=== PATIENT | female | born 1965 | race African-American/Black ===

== ENCOUNTER 2016-12-12 14:40 | Inpatient (IN) ==
--- NOTE | 2016-12-12 15:00 | EKG Report ---
Test Performed on : 12/12/2016 2:56:02 PM Test Reason : cp/abd pain Blood Pressure : / mmHG Vent. Rate : 089 BPM Atrial Rate : 089 BPM P-R Int : 178 ms QRS Dur : 092 ms QT Int : 364 ms P-R-T Axes : 057 019 036 degrees QTc Int : 442 ms Normal sinus rhythm. Normal ECG When compared with ECG of 23-OCT-2016 14:53, Nonspecific T wave abnormality no longer evident in Lateral leads Unconfirmed Result
[2016-12-12 15:26] LABS: BASO% 0.2 % (0.0-0.8); EOS# 0.02 X1000 (0.0-0.7); EOS% 0.2 % (0.0-10.0); HEMOGLOBIN 12.8 g/dL (12.0-16.0); IMM GRAN# 0.03 X1000 (0.0-0.04); IMM GRAN% 0.3 % (0.0-0.5); LYMPH# 2.16 X1000 (1.2-3.4); LYMPH% 18.8 % (20.5-51.1); MANUAL DIFF NEEDED? NO; MCH 31.1 PG (27-31); MCHC 32.8 g/dL (33-37); MCV 94.9 FL (81-99); MONO# 0.35 X1000 (0.11-0.59); MONO% 3.1 % (1.7-9.3); NEUT% 77.4 % (42.2-75.2); PLT 148 X1000 (130-400); RBC 4.11 XMIL (4.2-5.4)
--- NOTE | 2016-12-12 15:34 | Diag Imaging Result Doc PS360 ---
EXAM: FLAT/UPRIGHT ABD/1 VIEW CHEST HISTORY: abd pain TECHNIQUE: Two view abdomen. Single view chest. COMPARISON: 10/23/2016 FINDINGS: Supine and erect views of the abdomen reveal postsurgical changes upper abdomen and lumbar spine. There is a paucity of bowel gas which somewhat limits evaluation of possible obstruction.. There is no organomegaly or mass effect. Single view of the chest reveals no infiltrate, effusion, or pneumothorax. There is no free air beneath the hemidiaphragm. There is borderline cardiomegaly. IMPRESSION: No acute abnormalities are appreciated. Paucity of bowel gas which somewhat limits evaluation of obstruction. Borderline cardiomegaly. Electronically signed by Alexandra Currie 12/12/2016 3:32 PM
[2016-12-12 16:03] LABS: AGAP 18; ALBUMIN 4.3 g/dL (3.5-5.0); ALKALINE PHOSPHATASE 144 U/L (32-104); AMYLASE 110 U/L (20-200); BUN 9 mg/dL (8-22); CALCIUM 10.1 mg/dL (8.8-10.2); CHLORIDE 97 mmol/L (98-107); COSMO 277; GOT 20 U/L (10-30); GPT 17 U/L (10-36); LIPASE 26 U/L (13-60); POTASSIUM 4.1 mmol/L (3.5-5.1); SODIUM 137 mmol/L (136-145); TCO2 22 mmol/L (25-35); TOTAL PROTEIN 8.1 g/dL (6.3-8.3)
[2016-12-12 16:08] LABS: URINE CULTURE PL NEEDED? NO
[2016-12-12] MEDS ORDERED: SODIUM CHLORIDE 0.9% INJ ONE (16:10)
[2016-12-12] MEDS ORDERED: PHENERGAN IV ONE (16:10)
[2016-12-12] MEDS ORDERED: PHENERGAN ONE (16:11)
[2016-12-12 16:22] LABS: BILIRUBIN URINE NEGATIVE (NEGATIVE); BLOOD URINE NEGATIVE (NEGATIVE); CLARITY CLEAR (CLEAR); COLOR YELLOW; GLUCOSE URINE NEGATIVE (NEGATIVE); LEUKOCYTES URINE NEGATIVE (NEGATIVE); NITRITE URINE NEGATIVE (NEGATIVE); PROTEIN URINE NEGATIVE (NEGATIVE); UROBILINOGEN URINE NORMAL
[2016-12-12 16:23] LABS: URINE CAST NONE SEEN /LPF; URINE CRYSTAL NONE SEEN /HPF; URINE EPITHELIAL CELLS <10 /HPF (<10); URINE RBC <10 /HPF (<10); URINE SOURCE CLEAN CATCH; URINE WBC <10 /HPF (<10)
[2016-12-12] MEDS ORDERED: NS 1,000 ML IV ONE (16:26)
[2016-12-12] MEDS ORDERED: COMPAZINE IV ONE (16:27)
[2016-12-12] MEDS ORDERED: DEMEROL IV ONE (16:27)
[2016-12-12] MEDS ORDERED: NS 1,000 ML ONE (16:32)
[2016-12-12] MEDS ORDERED: CARDIZEM IV ONE (18:44)
--- NOTE | 2016-12-12 21:01 | Diag Imaging Result Doc PS360 ---
EXAM: CT ABD/PELVIS W/ IV CONT ONLY INDICATION: vomiting/ hx pancreatitis/ cholecystectomy/ hyster COMPARISON: CT bony pelvis dated 11/18/[address] abdomen and pelvis dated 10/18/2012 FINDINGS: There are calcified granulomata in the right lung perihilar region. There has been a previous cholecystectomy. There is no evidence of acute pancreatitis. There is evidence of prior gastric surgery. There is a tiny cyst at the anterior aspect of the left kidney. There has been a previous hysterectomy. The appendix is normal. No focal inflammatory changes, free abdominal gas, or free fluid is appreciated. There is no bowel obstruction. The remainder of the solid viscera of the abdomen and pelvis and the remainder of the GI tract are essentially unremarkable. There is patchy aortoiliac atherosclerotic calcification. There is no evidence of aneurysm. IMPRESSION: Essentially stable chronic changes as described above. No evidence of acute pathology. Electronically signed by Shahbaz Rivers 12/12/2016 8:59 PM
[2016-12-12] MEDS: ZOFRAN IV PRN (23:41)
[2016-12-13] MEDS: ZOFRAN IV PRN ×2 (09:57→17:01)
[2016-12-13 11:55] LABS: HEMATOCRIT 38.4 % (37.0-47.0); HEMOGLOBIN 12.7 g/dL (12.0-16.0); MCH 30.7 PG (27-31); MCHC 33.1 g/dL (33-37); MCV 92.8 FL (81-99); PLT 146 X1000 (130-400); RBC 4.14 XMIL (4.2-5.4)
[2016-12-13 12:10] LABS: AGAP 15; ALBUMIN 4.1 g/dL (3.5-5.0); ALKALINE PHOSPHATASE 135 U/L (32-104); BUN 9 mg/dL (8-22); CALCIUM 9.7 mg/dL (8.8-10.2); CHLORIDE 95 mmol/L (98-107); COSMO 268; GOT 17 U/L (10-30); GPT 17 U/L (10-36); MAGNESIUM 1.3 mg/dL (1.5-2.7); POTASSIUM 3.4 mmol/L (3.5-5.1); SODIUM 133 mmol/L (136-145); TCO2 23 mmol/L (25-35); TOTAL PROTEIN 7.8 g/dL (6.3-8.3)
[2016-12-13] MEDS: HUMALOG DOSE (PARKWAY) SUBQ SCH ×3 (14:19→20:08)
--- NOTE | 2016-12-13 16:51 | HISTORY AND PHYSICAL ---
CHIEF COMPLAINT: Abdominal pain. HISTORY OF PRESENT ILLNESS: This is a 50-year-old female who presented to the emergency room complaining of abdominal pain that began about 6 hours prior to presentation to the emergency room. She described it as a crampy-type pain. It was generalized, with no specific exacerbation or alleviating factors. She does complain of nausea. She did receive Zofran ODT en route to the emergency room with no relief of nausea. She does have a prior history of Billroth I, hypertension, recurrent pancreatitis status post Whipple, prior chronic alcoholism. She comes in complaining of generalized abdominal pain for about 6 hours prior to admission, chronic pancreatitis being status post Whipple, as well as chronic alcohol abuse. She denied any black or bloody vomitus, black or bloody stools, any vomiting or chest pain. CT of the abdomen revealed no acute pathology with abdominal x-ray revealing no acute abnormalities. She was given Phenergan, Compazine, and Demerol as well as IV hydration in the emergency room, and admitted for further evaluation and treatment. PAST MEDICAL HISTORY: Hypertension, recurrent pancreatitis status post Whipple, alcohol abuse, COPD, chronic back pain. PAST SURGICAL HISTORY: Whipple procedure, lumbar laminectomy of 3, 4, and 5, cholecystectomy, hysterectomy, and tonsillectomy. SOCIAL HISTORY: She smokes about a pack a day. Denies any illicit drug use. She does have a history of alcoholism, although she quit greater than 5 years ago. ALLERGIES: No known drug allergies. HOME MEDICATIONS: Compazine, metformin, Lyrica, Protonix, methocarbamol, Norvasc, Xanax, and ProAir. REVIEW OF SYSTEMS: A 14-point review of systems was discussed with patient, with pertinent positives stated in the HPI. She denied any chest pain, palpitations, dizziness, syncope, vomiting, black or bloody vomitus, diarrhea, constipation, black or bloody stools, hematuria, dysuria, frequency, or urgency. PHYSICAL EXAMINATION: GENERAL: This is a 50-year-old female who is lying in the bed in no distress. VITAL SIGNS: Blood pressure is 160/76 with a heart rate of 89, respirations are 18, temperature is 98.2 degrees oral, with room air saturations of 96% to 100%. HEENT: Head is normocephalic, atraumatic. Pupils equal, round, react to light. EOMs are intact. Sclerae anicteric. Mucous membranes are moist. NECK: Supple, with trachea midline. CARDIOVASCULAR: Regular rate and rhythm. S1 and S2 appreciated. PULMONARY: Breath sounds are clear, with no increased work of breathing noted. GASTROINTESTINAL: Abdomen is soft, round, nontender, and nondistended, with bowel sounds in all 4 quadrants. EXTREMITIES: No clubbing, cyanosis, or edema. Calves are nontender. Pulses are palpable x4. NEUROLOGIC: She is sleepy, although she does wake to verbal stimuli. LABORATORY: WBC is 11.4 with hemoglobin of 12.8, hematocrit 39, and platelets of 148,000. Sodium 137, potassium 4.1, BUN 9 with a creatinine of 0.8, and glucose of 171. Urinalysis is essentially negative. Amylase is 110 and lipase 26. ASSESSMENT AND PLAN: 1. Abdominal pain. 2. Nausea. 3. Hypertension. 4. Chronic obstructive pulmonary disease. 5. Gastroesophageal reflux disease. 6. Tobacco abuse. PLAN: The patient has been admitted to the med/surg floor. She is receiving IV hydration, which we will continue. We will continue telemetry. We will give a clear liquid diet and advance as tolerated. We will identify her home medications and continue as appropriate. We will trend labs in the morning. In reviewing the patient's past records, she was admitted back in 2012 with the same symptoms, underwent an EGD, and was given Carafate. She does state that that did help her in the past. We will start Carafate suspension every 6 hours and we will monitor. DISPOSITION: Hopefully, the patient will be able to be discharged in 1-2 days and follow up with Dr. Fang in Gastroenterology on an outpatient basis. Dictated by ERNA Peterson for Steve Hopkins MD cc: ERNA Peterson MD
[2016-12-13] MEDS: CARAFATE LIQUID PO SCH (20:23)
[2016-12-13] MEDS: ROBAXIN PO PRN (20:23)
[2016-12-13] MEDS: LYRICA PO SCH (20:23)
[2016-12-13] MEDS: XANAX PO SCH (20:23)
[2016-12-13] MEDS: G.I. COCKTAIL PO PRN (21:30)
[2016-12-14] MEDS: VENTOLIN HFA INH SCH ×5 (03:04→22:24)
[2016-12-14] MEDS: CARAFATE LIQUID PO SCH ×4 (03:23→20:17)
[2016-12-14 05:59] LABS: HEMATOCRIT 38.4 % (37.0-47.0); HEMOGLOBIN 12.7 g/dL (12.0-16.0); MCHC 33.1 g/dL (33-37); MCV 93.7 FL (81-99); MPV 14.2 FL (7.4-10.4); RBC 4.1 XMIL (4.2-5.4)
[2016-12-14] MEDS: HUMALOG DOSE (PARKWAY) SUBQ SCH ×4 (06:01→20:11)
[2016-12-14] MEDS: PROTONIX PO SCH (06:04)
[2016-12-14 06:19] LABS: ALBUMIN 3.8 g/dL (3.5-5.0); CALCIUM 9.6 mg/dL (8.8-10.2); POTASSIUM 3.3 mmol/L (3.5-5.1); TOTAL BILIRUBIN 0.5 mg/dL (0.20-1.00); TOTAL PROTEIN 7.3 g/dL (6.3-8.3)
[2016-12-14] MEDS: G.I. COCKTAIL PO PRN (08:13)
[2016-12-14] MEDS ORDERED: ZOFRAN IV PRN (10:11)
--- NOTE | 2016-12-14 11:36 | PROGRESS NOTE ---
DATE: 12/14/2016 SUBJECTIVE: The patient still complains of epigastric abdominal pain. Denies any current chest pain or palpitations. Denies any diarrhea or constipation. PHYSICAL EXAMINATION: Vital Signs: Temperature 98, pulse 86, respiratory rate 16, BP 115/62, saturation 93% on room air. General: Patient is awake, alert. She is currently in no respiratory distress. HEENT: Normocephalic and atraumatic. [place]. Neck: Supple. CV: Regular rate. Chest: Clear. Abdomen: Soft. Tender before palpation diffusely. No guarding. No rebound. Extremities: Moves all extremities. Neurologic: No focal changes. DIAGNOSTIC DATA: CBC and CMP essentially normal. Potassium 3.3, creatinine 1.1. AST and ALT both have elevated overnight to 15 and 46 respectively. PLAN: We will advance diet. We will recheck her labs in the a.m. If her LFTs are improving, we will discharge home. If not, we will begin workup. Certainly expect that she is going to be gastritis. According to the family, it may be alcoholic gastritis. cc: Steve Hopkins MD
[2016-12-14] MEDS: ROBAXIN PO PRN ×2 (12:00→21:30)
[2016-12-14] MEDS: NORVASC PO SCH (12:01)
[2016-12-14] MEDS: NORCO-5 PO PRN ×2 (17:37→21:30)
[2016-12-14] MEDS: LYRICA PO SCH (20:17)
[2016-12-14] MEDS: XANAX PO SCH (20:17)
[2016-12-15] MEDS: CARAFATE LIQUID PO SCH ×2 (01:30→09:14)
[2016-12-15] MEDS: NORCO-5 PO PRN ×2 (01:30→06:12)
[2016-12-15] MEDS: VENTOLIN HFA INH SCH ×2 (03:37→09:02)
[2016-12-15] MEDS: HUMALOG DOSE (PARKWAY) SUBQ SCH (06:11)
[2016-12-15] MEDS: PROTONIX PO SCH (06:12)
[2016-12-15 06:17] VITALS: BP 134/77
[2016-12-15 06:38] LABS: HEMATOCRIT 37.3 % (37.0-47.0); HEMOGLOBIN 12.1 g/dL (12.0-16.0); MCH 30.7 PG (27-31); MCHC 32.4 g/dL (33-37); MCV 94.7 FL (81-99); PLT 136 X1000 (130-400); RBC 3.94 XMIL (4.2-5.4)
[2016-12-15 08:04] LABS: ALBUMIN 3.7 g/dL (3.5-5.0); CALCIUM 9.5 mg/dL (8.8-10.2); MAGNESIUM 1.8 mg/dL (1.5-2.7); POTASSIUM 3.4 mmol/L (3.5-5.1); TOTAL BILIRUBIN 0.3 mg/dL (0.20-1.00)
[2016-12-15] MEDS: NORVASC PO SCH (09:14)
--- NOTE | 2016-12-16 08:21 | DISCHARGE SUMMARY ---
ADMISSION DATE: 12/12/2016 DISCHARGE DATE: 12/15/2016 PRIMARY CARE PHYSICIAN: None. ADMISSION DIAGNOSES: 1. Abdominal pain. 2. Nausea. 3. Hypertension. 4. Chronic obstructive pulmonary disease. 5. Gastroesophageal reflux disease. 6. Tobacco abuse. DISCHARGE DIAGNOSES: 1. Epigastric abdominal pain. 2. Elevated liver function tests, improved. 3. Nausea, resolved. 4. Hypertension. 5. Chronic obstructive pulmonary disease. 6. Gastroesophageal reflux disease. 7. Tobacco abuse summary. SUMMARY OF FINDINGS: This is a 50-year-old female who presented with abdominal pain that began approximately 6 hours prior to presenting to the emergency room that she described as a crampy- type pain generalized with no specific exacerbation or alleviating factors. She also complained of nausea. She has had a history of recurrent pancreatitis status post a Whipple and prior chronic alcoholism. She denied any black or bloody vomitus, black or bloody stool or any vomiting or chest pain. Her CT of the abdomen revealed no acute pathology with an abdominal x-ray revealing no acute abnormality. She was admitted and given IV hydration, placed on a clear liquid diet, and advanced as tolerated. Trend her labs. Her nausea is improved. It is noted per the family that this may be an alcoholic gastritis as they feel she has been drinking more lately, but she is improved. So, it is felt that she can safely be discharged home today and follow up with her GI doctor, who is Dr. Fang, for outpatient GI workup in the next 1-2 weeks. DISCHARGE MEDICATIONS: 1. She will be given a prescription for [place] 5 one p.o. q.4 hours p.r.n. #15 with no refills. 2. She will resume her ProAir inhaler q.6 hours. 3. Xanax 2 mg p.o. at bedtime. 4. Amlodipine 5 mg p.o. daily. 5. Methocarbamol 750 mg p.o. t.i.d. 6. Protonix 40 mg p.o. daily. 7. Lyrica 300 mg p.o. at bedtime. 8. Metformin 500 mg p.o. b.i.d. 9. Compazine 5 mg p.o. q. 8 hours p.r.n. FOLLOWUP: She will need to follow up with GI for outpatient workup. Time spent on discharge: 35 minutes. Dictated by ERNA Degroot for Steve Hopkins MD cc: ERNA Degroot MD Babu Kantamneni, MD
--- NOTE | 2016-12-18 02:59 | ED EKG INTERP ---
This chart was entered by Zakiya Flowers Scribe, acting as scribe for Pelon Anderson MD. EKG Interpretation - EKG Time of EKG reading by physician:: 14:56 EKG Read and Signed by:: Pelon Anderson EKG Interpretation (*Must complete 3 of following elements*): Normal Rate: 89 Rhythm: normal sinus rhythm Comments: normal ECG This chart was documented by the indicated scribe, (Zakiya Flowers Scribe) and accurately reflects the services I performed and decisions made by me, Pelon Anderson MD, as attested by the provider's signature.
--- NOTE | 2016-12-18 02:59 | PROVIDER DOCUMENTATION ---
This chart was entered by Zakiya Flowers Scribe, acting as scribe for Pelon Anderson MD. HPI-Abdominal Pain/GI Problem <Chris Duran - Last Filed: 12/12/16 21:46> - General Source: family - History of Present Illness-ABD Nature of Presenting Problems: Pt is 50 y/o F presents to the generalized abdominal pain. Pt's family member states N/V/D started this am. Pt's family member states Pt has recently had back surgery. Pt's family denies F Abdominal Pain Onset Location: reports: generalized abdomen Pain Radiation: reports: no radiation Quality of Pain: reports: aching Severity in ED: reports: moderate Onset/Duration: reports: this morning (0800) Timing: reports: still present Activities at Onset: reports: light activity Modifying Factors: improves with: nothing Associated Symptoms: reports: diarrhea, nausea, vomiting. denies: anxiety, arm pain, back/neck pain, chest pain, constipation, cough, diaphoresis, dizziness, EENT symptoms, fatigue, fever/chills, genitourinary problems, headaches, heartburn, joint pain, loss of appetite, malaise, muscle aches, sinus congestion /drainage, rash, seizure, shortness of breath, sensory/motor loss, pain with inspiration, swelling/mass in abdomen, syncope, weakness, trouble walking Last BM: unsure Dark Stools Present?: reports: none noticed Rectal Bleeding: reports: none Rectal Pain: reports: none Emesis Description: reports: other (green) Bruising or Bleeding Gums?: No Similar Symptoms Previously?: Yes Recently seen or treated by another doctor?: No <Pelon Anderson - Last Filed: 12/18/16 02:59> - General Chief Complaint: Abdominal Pain Stated Complaint: Abd pain/N/V Time Seen by Provider: 12/12/16 16:20 Allergies/Adverse Reactions: Patient Allergies Allergy/AdvReac Type Severity Reaction Status Date / Time No Known Allergies Allergy Verified 12/12/16 14:45 Home Medications: Home Medication List Medication Instructions Recorded Confirmed Last Taken Type Albuterol Sulfate [Proair Hfa] 8.5 gm IH Q6HR 11/17/14 12/12/16 06/11/15 08:00 History Pantoprazole [Protonix] 40 mg PO DAILY@0700 11/17/14 12/12/16 11/24/15 History Pregabalin [Lyrica] 300 mg PO HS 11/17/14 12/12/16 11/24/15 21:00 History Alprazolam [Xanax] 2 mg PO QHS 11/25/15 12/12/16 11/24/15 21:00 History Methocarbamol 750 mg PO TID PRN 11/25/15 12/12/16 11/24/15 21:00 History Amlodipine [Norvasc] 5 mg PO DAILY #60 tablet 11/26/15 12/12/16 Unknown Rx Metformin HCl 500 mg PO BID 12/12/16 12/12/16 Unknown History Prochlorperazine [Compazine] 5 mg PO Q8HR PRN 12/12/16 12/12/16 Unknown History Hydrocodone/APAP 5 mg/325 mg 1 each PO Q4H PRN PRN #15 tablet 12/15/16 Unknown Rx [[place]-5] Review of Systems - Adult - REVIEW OF SYSTEMS - ADULT Constitutional: denies: fever Eyes: denies: no symptoms reported, discharge, blurred vision Ears, Nose, Mouth & Throat: denies: ear pain, sinus problem Cardiovascular: denies: chest pain, irregular heart rate Gastrointestinal: reports: abdominal pain, diarrhea, nausea, vomiting Genitourinary: denies: discharge, frequent UTI's Musculoskeletal: denies: bone pain, joint pain Integumentary: denies: hives, itching, mole changes Neurological: denies: numbness, seizure Psychiatric: reports: no symptoms reported Endocrine: denies: goiter, cold intolerance, heat intolerance Allergic/Immunologic: denies: allergic rhinitis, food allergy <Chris Duran - Last Filed: 12/12/16 21:46> - REVIEW OF SYSTEMS - ADULT Constitutional: reports: no symptoms reported Eyes: reports: no symptoms reported Ears, Nose, Mouth & Throat: reports: no symptoms reported Cardiovascular: reports: no symptoms reported Respiratory: reports: no symptoms reported Gastrointestinal: reports: abdominal pain (generalized), diarrhea, nausea, vomiting Genitourinary: reports: no symptoms reported Musculoskeletal: reports: no symptoms reported Integumentary: reports: no symptoms reported Neurological: reports: no symptoms reported Psychiatric: reports: no symptoms reported Endocrine: reports: no symptoms reported Hematologic/Lymphatic: reports: no symptoms reported Allergic/Immunologic: reports: no symptoms reported All Other Systems: Reviewed and Negative <Pelon Anderson - Last Filed: 12/18/16 02:59> Past History - Adult - PAST MEDICAL HISTORY-ADULT Review of Records: reports: Nursing Assessment Review, Medications Reviewed Major Childhood Illnesses: reports: denies history Cardiovascular: reports: HTN Respiratory: reports: asthma, COPD <Chris Duran - Last Filed: 12/12/16 21:46> - PAST MEDICAL HISTORY-ADULT Review of Records: reports: Nursing Assessment Review, Medications Reviewed, Social history reviewed & non-contributory. Major Childhood Illnesses: reports: denies history Cardiovascular: reports: HTN Respiratory: reports: asthma, COPD Gastrointestinal: reports: GERD, pancreatitis, other (chronic abd pain) Obstetrical/Gynecological: reports: denies history Genitourinary: reports: denies history Musculoskeletal: reports: arthritis, chronic pain Neurological: reports: denies history Psychiatric: reports: denies history Endocrine/Immune: reports: denies history Other Conditions: reports: denies history - PRIOR SURGERIES/PROCEDURES Surgical/Procedure History: reports: recent surgery (06/01/2015), cholecystectomy, hysterectomy, tonsillectomy, back/neck, other (whipple procedure) - IMMUNIZATION STATUS Childhood Immunizations: See Nurse Assessment Flu Vaccine: See Nurse Assessment - FAMILY HISTORY Family History: reviewed, not pertinent - SOCIAL HISTORY Smoking: cigarettes, less than 1 pack/day Provider spent 3-5 mins advising pt. on dangers of tobacco.: Discussed manners to quit use, and f/u contacts for add'l counseling. Substance Use: denies Living Situation: family <Pelon Anderson - Last Filed: 12/18/16 02:59> Physical Exam-General - PHYSICAL EXAM-ADULT Initial Vital Signs Reviewed: Yes - CONSTITUTIONAL General Appearance: appears well, alert, mild distress - EYES Eyes: PERRL/EOMI, pink conjunctivae - HEAD, EARS, NOSE, MOUTH & THROAT HENMT: normocephalic/atraumatic, moist mucous membranes, normal ENT inspection - CARDIOVASCULAR Cardiovascular: normal peripheral pulses, regular rate, rhythm <Chris Duran - Last Filed: 12/12/16 21:46> - PHYSICAL EXAM-ADULT Initial Vital Signs Reviewed: Yes - CONSTITUTIONAL General Appearance: alert, mild distress - EYES Eyes: PERRL/EOMI, pink conjunctivae - HEAD, EARS, NOSE, MOUTH & THROAT HENMT: normocephalic/atraumatic, moist mucous membranes, normal ENT inspection - NECK Neck: non-tender, full range of motion, supple, normal inspection - RESPIRATORY Respiratory: chest non-tender, lungs clear, normal breath sounds - CARDIOVASCULAR Cardiovascular: normal peripheral pulses, regular rate, rhythm - GASTROINTESTINAL (ABDOMEN) Abdominal Exam: normal bowel sounds, non tender, soft - LYMPHATIC Lymphatic: no adenopathy - MUSCULOSKELETAL Back Exam: normal inspection, no CVA tenderness, no vertebral tenderness Extremity: normal range of motion, non-tender, normal gait, normal inspection - SKIN Integumentary: normal color, normal turgor, warm/dry - NEUROLOGIC Neurologic: grossly normal - PSYCHIATRIC Psych/Mental Status: normal mood/affect, oriented x 3 <Pelon Anderson - Last Filed: 12/18/16 02:59> Progress - PLAN OF CARE/RESULTS Progress/Plan/Lab Results: Vital Signs - 8 hr 12/12/16 14:46 12/12/16 17:15 12/12/16 20:45 Temperature 98.1 F Pulse Rate 88 88 85 Respiratory Rate 18 18 17 Blood Pressure 157/99 174/92 145/90 O2 Sat by Pulse Oximetry 96 96 98 Laboratory Results - last 24 hr 12/12/16 12/12/16 12/12/16 14:50 14:50 14:52 WBC 11.47 H RBC 4.11 L Hgb 12.8 Hct 39.0 MCV 94.9 MCH 31.1 H MCHC 32.8 L RDW Std Deviation 13.3 Plt Count 148 MPV Not Reportable Immature Gran % (Auto) 0.3 Neut % (Auto) 77.4 H Lymph % (Auto) 18.8 L [place] % (Auto) 3.1 Eos % (Auto) 0.2 Baso % (Auto) 0.2 Immature Gran # (Auto) 0.03 Neut # (Auto) 8.89 H Lymph # (Auto) 2.16 [place] # (Auto) 0.35 Eos # (Auto) 0.02 Baso # (Auto) 0.02 Sodium 137 Potassium 4.1 Chloride 97 L Carbon Dioxide 22 L Anion Gap 18 BUN 9 Creatinine 0.8 Estimated GFR/1.73 m2 > 60 BUN/Creatinine Ratio 11 Glucose 174 H POC Glucose 171 H Calculated Osmolality 277 Calcium 10.1 Total Bilirubin 0.30 AST 20 ALT 17 Alkaline Phosphatase 144 H Total Protein 8.1 Albumin 4.3 Globulin 4.0 Albumin/Globulin Ratio 1.0 Amylase 110 Lipase 26 Urine Source Urine Color Urine Clarity Urine pH Ur Specific [place] Urine Protein Urine Ketones Urine Blood Urine Nitrite Urine Bilirubin Urine Urobilinogen Urine Microscopic RBC Urine WBC Urine Microscopic WBC Ur Epithelial Cells Urine Crystals Urine Bacteria Urine Casts Urine Yeast Urine Glucose 12/12/16 16:00 WBC RBC Hgb Hct MCV MCH MCHC RDW Std Deviation Plt Count MPV Immature Gran % (Auto) Neut % (Auto) Lymph % (Auto) [place]ahan % (Auto) Eos % (Auto) Baso % (Auto) Immature Gran # (Auto) Neut # (Auto) Lymph # (Auto) [place]ahan # (Auto) Eos # (Auto) Baso # (Auto) Sodium Potassium Chloride Carbon Dioxide Anion Gap BUN Creatinine Estimated GFR/1.73 m2 BUN/Creatinine Ratio Glucose POC Glucose Calculated Osmolality Calcium Total Bilirubin AST ALT Alkaline Phosphatase Total Protein Albumin Globulin Albumin/Globulin Ratio Amylase Lipase Urine Source CLEAN CATCH Urine Color YELLOW Urine Clarity CLEAR Urine pH 7.0 Ur Specific [place] 1.010 Urine Protein NEGATIVE Urine Ketones NEGATIVE Urine Blood NEGATIVE Urine Nitrite NEGATIVE Urine Bilirubin NEGATIVE Urine Urobilinogen NORMAL Urine Microscopic RBC <10 Urine WBC NEGATIVE Urine Microscopic WBC <10 Ur Epithelial Cells <10 Urine Crystals NONE SEEN Urine Bacteria NEGATIVE Urine Casts NONE SEEN Urine Yeast NONE SEEN Urine Glucose NEGATIVE Orders Category Date Time Status NPO Diet 12/12/16 14:[address] ABD/PELVIS W/ IV CONT ONLY [CT] Stat Exams 12/12/16 18:52 Completed FLAT/UPRIGHT ABD/1 VIEW CHEST [RAD] Stat Exams 12/12/16 14:52 Completed AMYLASE [CHEM] Stat Lab 12/12/16 14:50 Completed CBC WITH ELECTRONIC DIFF [HEME] Stat Lab 12/12/16 14:50 Completed COMPREHENSIVE METABOLIC PANEL [CHEM] Stat Lab 12/12/16 14:50 Completed LIPASE [CHEM] Stat Lab 12/12/16 14:[address] W/POSS RFLX CULT [URINALYSIS] Stat Lab 12/12/16 16:00 Completed 0.9% Sodium Chloride Inj [Ns] 1,000 ml Med 12/12/16 16:32 Discontinued .ROUTE As Directed 0.9% Sodium Chloride Inj [Ns] 1,000 ml Med 12/12/16 16:26 Discontinued IV 999 mls/hr Diltiazem [Cardizem] Med 12/12/16 18:44 Discontinued 20 mg IV NOW ONE Meperidine [Demerol] Med 12/12/16 16:27 Discontinued 25 mg IV NOW ONE Prochlorperazine [Compazine] Med 12/12/16 16:27 Discontinued 10 mg IV NOW ONE Promethazine [Phenergan] Med 12/12/16 16:11 Discontinued 25 mg .ROUTE .STK-MED ONE Promethazine [Phenergan] Med 12/12/16 16:10 Discontinued 25 mg IV NOW ONE Sodium Chloride 0.9% Med 12/12/16 16:10 Discontinued 10 ml INJ NOW ONE EKG [EKG] Stat Ther 12/12/16 14:49 Draft Result Diagrams: 12/12/16 14:50 12/12/16 14:50 - REASSESSMENT Reassessment #1 Time Reassessed: 21:43 Status: unchanged (pt agrees to admission and no relief from zofran, compazine, or phenergan) <Chris Duran - Last Filed: 12/12/16 21:46> - PLAN OF CARE/RESULTS Progress/Plan/Lab Results: Vital Signs - 8 hr 12/12/16 14:46 Temperature 98.1 F Pulse Rate 88 Respiratory Rate 18 Blood Pressure 157/99 O2 Sat by Pulse Oximetry 96 Laboratory Results - last 24 hr 12/12/16 12/12/16 12/12/16 14:50 14:50 14:52 WBC 11.47 H RBC 4.11 L Hgb 12.8 Hct 39.0 MCV 94.9 MCH 31.1 H MCHC 32.8 L RDW Std Deviation 13.3 Plt Count 148 MPV Not Reportable Immature Gran % (Auto) 0.3 Neut % (Auto) 77.4 H Lymph % (Auto) 18.8 L [place] % (Auto) 3.1 Eos % (Auto) 0.2 Baso % (Auto) 0.2 Immature Gran # (Auto) 0.03 Neut # (Auto) 8.89 H Lymph # (Auto) 2.16 [place] # (Auto) 0.35 Eos # (Auto) 0.02 Baso # (Auto) 0.02 Sodium 137 Potassium 4.1 Chloride 97 L Carbon Dioxide 22 L Anion Gap 18 BUN 9 Creatinine 0.8 Estimated GFR/1.73 m2 > 60 BUN/Creatinine Ratio 11 Glucose 174 H POC Glucose 171 H Calculated Osmolality 277 Calcium 10.1 Total Bilirubin 0.30 AST 20 ALT 17 Alkaline Phosphatase 144 H Total Protein 8.1 Albumin 4.3 Globulin 4.0 Albumin/Globulin Ratio 1.0 Amylase 110 Lipase 26 Orders Category Date Time Status NPO Diet 12/12/16 14:52 Active FLAT/UPRIGHT ABD/1 VIEW CHEST [RAD] Stat Exams 12/12/16 14:52 Completed AMYLASE [CHEM] Stat Lab 12/12/16 14:50 Completed CBC WITH ELECTRONIC DIFF [HEME] Stat Lab 12/12/16 14:50 Completed COMPREHENSIVE METABOLIC PANEL [CHEM] Stat Lab 12/12/16 14:50 Completed LIPASE [CHEM] Stat Lab 12/12/16 14:[address] W/POSS RFLX CULT [URINALYSIS] Stat Lab 12/12/16 16:00 Received Promethazine [Phenergan] Med 12/12/16 16:11 Discontinued 25 mg .ROUTE .STK-MED ONE Promethazine [Phenergan] Med 12/12/16 16:10 Discontinued 25 mg IV NOW ONE Sodium Chloride 0.9% Med 12/12/16 16:10 Discontinued 10 ml INJ NOW ONE EKG [EKG] Stat Ther 12/12/16 14:49 Draft Result Diagrams: 12/15/16 05:47 12/15/16 05:47 - XRAY 1 XRAY Study: Chest, Abdomen Impression: Abnormal ( paucity of bowel gas which somewhat limits evaluation of obstruction. borderline cardiomegaly.) XRAY Interpretation: no acute abnormalities are appreciated. <Pelon Anderson - Last Filed: 12/18/16 02:59> Departure - Departure Date of Disposition Decision: 12/12/16 Time of Disposition Decision: 21:44 Certified Medical Emergency: Emergent - Critical Care Note This patient required my direct & personal management of CC.: No <Chris Duran - Last Filed: 12/12/16 21:46> - Departure Date of Disposition Decision: 12/12/16 Time of Disposition Decision: 21:44 Certified Medical Emergency: Emergent - Critical Care Note This patient required my direct & personal management of CC.: No <Pelon Anderson - Last Filed: 12/18/16 02:59> - Departure DIAGNOSIS: Intractable vomiting Disposition: ADMITTED INPATIENT 09 Condition: Stable This chart was documented by the indicated scribe, (Zakiya Flowers, Miriam) and accurately reflects the services I performed and decisions made by me, Pelon Anderson MD, as attested by the provider's signature.
== END 2016-12-15 11:47 | disposition home or self-care (01) ==
LOC: P.ED 14:40 → P.MEDSURG 22:05 → SUATTDRO 22:05
PROVIDERS: ATTEND Family Medicine